=== PATIENT | male | born 1950 | race Caucasian/White ===

== ENCOUNTER 2022-09-27 10:44 | Emergency (ER) | payer OTHER, SELFPAY ==
--- NOTE | ~2022-09-27 | XR_ITS ---
EXAMINATION: XR CERVICAL SPINE CLINICAL INFORMATION: Pain. COMPARISON: None available. TECHNIQUE: AP, lateral, open-mouth, and foraminal views of the cervical spine were obtained. FINDINGS: Mild reversal of the normal cervical lordosis which may be positional or related to muscular spasm. No acute fracture or subluxation. No loss of vertebral body height. Loss of intervertebral disc height with endplate degenerative changes at C4-T1. No concerning lytic or blastic osseous lesion. Bilateral facet arthropathy. Unremarkable prevertebral soft tissues. Normal atlantoaxial alignment. XR/XR cervical spine 3V IMPRESSION: 1. Mild reversal of the normal cervical lordosis which may be positional or related to muscular spasm. 2. Moderate degenerative disc disease at C4-T1 with bilateral facet arthropathy.
[2022-09-27 10:54] VITALS: BP 144/87; PULSE 66; RESP 18; TEMP 36.9; O2SAT 96; BMI 32.4
--- NOTE | 2022-09-27 11:12 | PC.NURSE ---
patient a&ox3, pt c/o 5/10 neck pain when moving his neck, pt has good range of motion to upper extremities without pain, no vision changes, neuro intact, pt awaiting to see provider.
--- NOTE | 2022-09-27 11:48 | ED_ITS ---
HPI - General Adult General Chief complaint: General Medical Stated complaint: Neck pain Time Seen by Provider: 09/27/22 11:48 Source: patient Limitations: no limitations History of Present Illness HPI narrative: Patient presents here complaining of bilateral neck pain that is atraumatic in nature. Patient states he began to have the pain on when he walked next morning pain was worse. Patient denies any falls or trauma. Symptoms mild to moderate. Patient had a similar episode sometime back to the resolved on its own. Patient still works in labor market. But has not been hit in the neck or injured his neck in the past. At this time pain increases with range of motion is 7/10 no relief with [id number] meds at this time. Related Data Previous Rx's Medication Instructions Recorded methocarbamol 750 mg tablet 750 mg PO TID PRN muscle spasm #20 09/27/22 tabs naproxen 500 mg tablet (Naprosyn) 500 mg PO BID PRN pain #30 tabs 09/27/22 tramadol 50 mg tablet 50 mg PO BID PRN pain (scale score 09/27/22 7-10) #10 tabs Allergies Allergy/AdvReac Type Severity Reaction Status Date / Time No Known Allergies Allergy Verified 09/27/22 10:53 Review of Systems Review of Systems: General: No fever, no chills Neck: Positive neck pain bilaterally ENT: No sore throat, no ear pain Cardiovascular: No chest pain, no peripheral edema, no shortness of breath Respiratory: No dyspnea, no sputum production, no cough Muscle skeletal: No malaise, no back pain, positive neck pain, no extremity pain GI: no nausea vomiting, no diarrhea Skin: No rash PMFSH Past Medical History Attestation statement: The following information was validated with the patient. Social History Social History Advance Directives: No Advance Directives Information Provided: Yes Physical Exam ED Vital Signs: Vital Signs - 24 hr 09/27/22 10:54 Temperature 98.4 F Pulse Rate 66 Respiratory Rate 18 Blood Pressure 144/87 H Pulse Oximetry 96 Oxygen Delivery Method Room Air BMI result Body Mass Index 32.4 General appearance: Awake, alert, cooperative, in no acute distress Skin: Warm, dry, no rash Neck: Positive paraspinal muscle tenderness of the cervical spine with some slight midline tenderness. 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 Eyes: PERRL, EOMI, no icterus ENT: Oropharynx normal, uvula midline Neck: Soft supple full range of motion Extremities: Patient ambulatory moving upper and lower extremities purposely Neuro: Alert oriented x3, no focal deficit Psych: Normal affect Course Course Course Narrative: Cervical strain Spasmodic torticollis Cervical arthritis Cervical radiculopathy 72-year-old male who denies taking any medication at this time complaining of atraumatic bilateral neck pain pain increases with range of motion. C-spine plain films are pending at this time. Patient has no obvious clinical signs of cervical radiculopathy at this time. Symptoms seem consistent with spasmodic torticollis versus arthritis. 750 mg methocarbamol 50 mg tramadol p.m. 12:34 x-ray reviewed with patient patient has degenerative disease no lower cervical spine and reversal of the lordosis likely secondary to muscle spasm will place patient on Robaxin at this time and a short course of tramadol in and said. Patient to follow-up with PCP for further evaluation. And/or physical therapy and outpatient MRI in the future Medications Administered Discontinued Medications Generic Name Dose Route Start Last Admin Trade Name Freq PRN Reason Stop Dose Admin Methocarbamol 750 mg 09/27/22 11:54 09/27/22 12:03 Methocarbamol 750 Mg Tablet PO 09/27/22 11:55 750 mg ONCE ONE Administration Tramadol HCl 50 mg 09/27/22 11:54 09/27/22 12:03 Tramadol Hcl 50 Mg Tablet PO 09/27/22 11:55 50 mg ONCE ONE Administration Medical Decision Making Radiology Impression Discussion of test interpretation with radiology: I have reviewed the radiologist's reading. Radiologist Impression: ? Henry Aparicio [facility] [place] Routine Call Back My List TONY ?9? To Be Seen ?5? ED ?16? [facility] ?8? [facility] ?6? Sofía March? ? EM Bed 1 - EMC1? Back Pain/Injury? 15 F? With Doctor? 4? ?? 39m? ?? PRE ER? Draft? RME: back pain Mars Hartman Michael Back pain? Order BP 116/45 Pulse 76 Resp 18 Temp 98.3 F O2 Sat 100% (RA) Ur Preg Te... UA CC w/rf... Evon Donald? ? [facility] [place] 2 - [facility]? Animal Bite? 40 F? With Doctor? 4? ?? 1h 56m? ?? REG ER? Draft? Mars Hartman,Henry Ku,Cheryle BIT BY SKUNK ON FACE? Order BP 117/74 Pulse 64 Resp 16 Temp 98.2 F O2 Sat 96% (RA) Carlos Dumont? ? [facility] [place] Bed 4 - E[facility]? Body Fluid Exposure? 33 M? In Room? 2? ?? 16m? ?? PRE ER? No Document? Sign Up Unprotected Exposure? Order BP 147/89 Pulse 99 Resp 18 Temp 98.6 F O2 Sat 99% (RA) KothariDevin? ? [facility] [place] Bed 5 - [facility]? Upper Respiratory Symptoms? 58 M? With Doctor? 4? ?? 1h 36m? ?? REG ER? Draft? Mars Hartman Michael Thomson,Roxie A Asthma? Order BP 142/90 Pulse 89 Resp 18 Temp 98.1 F O2 Sat 95% (RA) Serology X-Ray Aleks Diaz? ? [facility] [place] Pino 4 - [facility]4? General Medical? 72 M? With Doctor? 4? ?? 1h 48m? ?? REG ER? Draft? Mars Hartman Michael Thomson,Roxie A Neck pain? Order BP 144/87 Pulse 66 Resp 18 Temp 98.4 F O2 Sat 96% (RA) X-Ray Dasha Frias? ? [facility] EX2 - PVE02? Upper Respiratory Symptoms? 55 F? With Doctor? 4? ?? 41m? ?? PRE ER? Draft? RME: Sore throat, ear pain, cough Mars Hartman Michael Sore throat/dizziness? Order BP 130/58 Pulse 101 Resp 18 Temp 98.2 F O2 Sat 100% (RA) X-Ray Serology X-Ray - XR cervical spine 3V Aleks Diaz??72??M??1950 ? Allergy/Adv: No Known Allergies Close Imaging ACTIVITY DATE EXAM STATUS AUTHOR 09/27/22 12:00 Cervical Spine X-Ray Signed Je Dougherty Imaging Reports Close Cervical Spine X-Ray (Signed) Je Dougherty - 09/27/22 Launch?Image [address] [address] XRay Report Signed Patient: Aleks Diaz MR#: [id number] : 1950 Acct:[id number] Age/Sex: 72 / M ADM Date: 09/27/22 Loc: HO.ED Attending Dr: Ordering Physician: Henry Aparicio Date of Service: 09/27/22 Procedure(s): XR cervical spine 3V Accession Number(s): [id number] cc: Henry Aparicio ~ EXAMINATION: XR CERVICAL SPINE CLINICAL INFORMATION: Pain. COMPARISON: None available. TECHNIQUE: AP, lateral, open-mouth, and foraminal views of the cervical spine were obtained. FINDINGS: Mild reversal of the normal cervical lordosis which may be positional or related to muscular spasm. No acute fracture or subluxation. No loss of vertebral body height. Loss of intervertebral disc height with endplate degenerative changes at C4-T1. No concerning lytic or blastic osseous lesion. Bilateral facet arthropathy. Unremarkable prevertebral soft tissues. Normal atlantoaxial alignment. XR/XR cervical spine 3V IMPRESSION: 1. Mild reversal of the normal cervical lordosis which may be positional or related to muscular spasm. ? 2. Moderate degenerative disc disease at C4-T1 with bilateral facet arthropathy. Dictated By: Je Dougherty MD Signed By: <Electronically signed by Je Dougherty MD in OV> 09/27/22 1224 DD/ 1200 TD/TT:? Blueprint Assembler: SR Discharge Plan Discharge Clinical Impression: Spasmodic torticollis Patient Disposition: Home, Self-Care Instructions: Spasmodic Torticollis (ED) Additional Instructions: Your clinical exam and x-rays consistent with spasmodic torticollis X-ray shows degenerative disease in the lower cervical spine and signs of muscle spasm. Medications as directed for pain and discomfort Close follow-up with primary care doctor for referral to physical therapy and/or outpatient MRI in the future is recommended. Return if symptoms worsen Prescriptions: New methocarbamol 750 mg tablet 750 mg PO TID PRN (Reason: muscle spasm) Qty: 20 0RF naproxen [Naprosyn] 500 mg tablet 500 mg PO BID PRN (Reason: pain) Qty: 30 0RF tramadol 50 mg tablet 50 mg PO BID PRN (Reason: pain (scale score 7-10)) Qty: 10 0RF
[2022-09-27] MEDS: traMADoL HCL 50 MG TABLET PO (12:03)
[2022-09-27] MEDS: methocarbamoL 750 MG TABLET PO (12:03)
== END 2022-09-27 12:48 | disposition home or self-care (01) ==
PROVIDERS: Emergency Provider Emergency Medicine Emergency Medical Services; PCP Physician Assistant
DX: G24.3 Spasmodic torticollis (principal); M54.2 Cervicalgia
CPT/HCPCS: 72040; 99283